=== PATIENT | female | born 1980 | race Caucasian/White ===

== ENCOUNTER 2018-05-08 10:30 | Emergency (ER) | payer BC, OTHER ==
[2018-05-08 10:42] VITALS: BP 122/71; PULSE 68; TEMP 98.3; BMI 21.9
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
== END 2018-05-08 11:35 | disposition home or self-care (01) ==
LOC: FER 10:30
DX: Z04.1 Encounter for examination and observation following transport accident (principal); V43.62XA Car passenger injured in collision with other type car in traffic accident, initial encounter; Y93.89 Activity, other specified; Y92.410 Unspecified street and highway as the place of occurrence of the external cause
CPT/HCPCS: 99282-25